=== PATIENT | male | born 1965 | race Caucasian/White ===

== ENCOUNTER → 2016-12-10 | Outpatient (CLI) | payer OTHER ==
[~2016-12-10] MED LIST: CARI350T28 PO; DEXL60CA4 PO; DIAZ10TA PO; METH-307 PO; RMRS/45 PO; trazodone PO
--- NOTE | 2016-12-10 14:45 | DIAGNOSTIC IMAGING REPORT ---
RIGHT RIBS UNILATERAL WITH PA CHEST CLINICAL HISTORY: INTERCOSTAL PAIN Right pain COMPARISON STUDY: None FINDINGS: Prior resection right 10th rib in the posterior mid right external . Old fractures of the anterior seventh eighth and ninth ribs. No acute abnormality. Study is negative for pneumothorax. IMPRESSION: 1. Prior partial resection right 10th rib. 2. Cortical fractures anterior right seventh eighth and ninth ribs considered healing and/or subacute Electronically signed by: Oscar Fox M.D. 12/10/2016 2:44 PM Dictated Date/Time: 12/10/2016 2:42 PM
== END | disposition home or self-care (01) ==
LOC: C.RADBC 14:20
PROVIDERS: ATTEND Physician Assistant Medical
DX: S22.41XD Multiple fractures of ribs, right side, subsequent encounter for fracture with routine healing (principal); X58.XXXD Exposure to other specified factors, subsequent encounter

== ENCOUNTER → 2017-01-01 | Outpatient (CLI) | payer OTHER ==
--- NOTE | 2017-01-01 10:05 | DIAGNOSTIC IMAGING REPORT ---
CHEST 2 VIEWS ROUTINE CLINICAL HISTORY: S/P INTERCOSTAL NERVE BLOCK,CHECK FOR PNEUMOTHORAX COMPARISON STUDY: 12/02/2016 FINDINGS: The cardiac and mediastinal contours are normal. There is no evidence of focal pulmonary consolidation. There is no evidence of failure. No pleural effusions are visualized.[ There is no pneumothorax. There are postsurgical changes involving right lower ribs. Bowel gas is visualized within the right lateral abdominal wall region, possibly indicating a hernia. IMPRESSION: 1. No active disease in the chest 2. No evidence of pneumothorax 3. Possible right upper lateral abdominal wall hernia Electronically signed by: John Loya M.D. 01/01/2017 10:03 AM Dictated Date/Time: 01/01/2017 10:01 AM
== END | disposition home or self-care (01) ==
LOC: C.RADBC 09:33
PROVIDERS: ATTEND Anesthesiology
DX: Z98.890 Other specified postprocedural states (principal)

== ENCOUNTER → 2017-02-20 | Outpatient (CLI) | payer OTHER ==
--- NOTE | 2017-02-20 13:34 | DIAGNOSTIC IMAGING REPORT ---
TWO VIEW CHEST CLINICAL HISTORY: Status post right intercostal injection. FINDINGS: PA and lateral chest radiographs are compared to study dated 01/01/2017. The cardiomediastinal silhouette is unremarkable. Findings suggest obstructive physiology and there is nonspecific interstitial thickening. No airspace consolidation or pleural effusion is identified. There is no pneumothorax. The bony thorax appears intact. Degenerative change is noted throughout the thoracic spine. Postoperative change is seen in the right upper quadrant of the abdomen. IMPRESSION: 1. No pneumothorax is identified post procedure. 2. Findings suggest obstructive physiology. The lungs are otherwise clear. Electronically signed by: Sihn Rose M.D. 02/20/2017 1:33 PM Dictated Date/Time: 02/20/2017 1:31 PM
== END | disposition home or self-care (01) ==
LOC: C.RADBC 10:30
PROVIDERS: ATTEND Anesthesiology
DX: Z98.890 Other specified postprocedural states (principal)

== ENCOUNTER → 2017-04-15 | Outpatient (CLI) | payer OTHER ==
--- NOTE | 2017-04-15 14:20 | DIAGNOSTIC IMAGING REPORT ---
CHEST 2 VIEWS ROUTINE HISTORY: Assess for pneumothorax. RFA PATIENT, ABLATION RIGHT T11-T12 COMPARISON: Chest 02/20/2017. FINDINGS: The lungs are clear. Cardiac silhouette is normal in size. No pleural effusions. No pneumothorax. Surgical clips and suture material within the right upper quadrant. IMPRESSION: No acute process. Electronically signed by: Rafiq Mallory M.D. 04/15/2017 2:19 PM Dictated Date/Time: 04/15/2017 2:17 PM
== END | disposition home or self-care (01) ==
LOC: C.RADBC 13:32
PROVIDERS: ATTEND Anesthesiology
DX: Z98.890 Other specified postprocedural states (principal)